=== PATIENT | male | born 1960 | race Caucasian/White ===

== ENCOUNTER 2017-01-06 10:37 | Emergency (ER) | payer SELFPAY ==
[~2017-01-06] VITALS: Ht 188 cm; Wt 106.7 kg
[~2017-01-06 10:37] MED LIST: AUGMENTIN875 MG PO; CHERATUSSIN DA473 ML PO; HYCODAN SYRUP480 ML PO; NOHOMEMEDS
[2017-01-06] MEDS ORDERED: KEFLEX500 MG PO (12:44)
[2017-01-06 12:51] VITALS: BP 153/87
== END 2017-01-06 13:04 | disposition home or self-care (01) ==
LOC: RME 10:37 → EME 10:37 → RME 13:04
DX: S40.211A Abrasion of right shoulder, initial encounter (principal); L08.9 Local infection of the skin and subcutaneous tissue, unspecified; T75.89XA Other specified effects of external causes, initial encounter; Y93.H9 Activity, other involving exterior property and land maintenance, building and construction
CPT/HCPCS: 99281; 99282